=== PATIENT | male | born 1950 | race Caucasian/White ===

== ENCOUNTER 2018-11-25 05:03 | Inpatient (IN) ==
[2018-11-19 14:44] LABS: HEMATOCRIT 50.8 % (42.0-52.0); HEMOGLOBIN 17.1 g/dL (14.0-18.0); MCH 30.2 PG (27-31); MCHC 33.7 g/dL (33-37); MCV 89.8 FL (81-99); MPV 11.3 FL (7.4-10.4); RBC 5.66 XMIL (4.7-6.1); RDW 13.6 % (11.5-14.5); WBC 8.83 X1000 (4.8-10.8)
[2018-11-19 15:03] LABS: CALCIUM 8.9 mg/dL (8.8-10.2); CREATININE 1.3 mg/dL (0.7-1.2); POTASSIUM 4.6 mmol/L (3.5-5.1)
[2018-11-25] MEDS ORDERED: KEFZOL 1 GM/D5W 2 GM/100 ML IVPB ONE (06:00)
[2018-11-25] MEDS ORDERED: REGLAN ONE (06:00)
[2018-11-25] MEDS ORDERED: PEPCID ONE (06:00)
[2018-11-25] MEDS ORDERED: LR 1,000 ML ONE ×2 (06:00→06:43)
[2018-11-25] MEDS ORDERED: VERSED ONE (06:12)
[2018-11-25] MEDS ORDERED: FENTANYL ONE ×2 (06:12→09:56)
[2018-11-25] MEDS ORDERED: XYLOCAINE-MPF 2% ONE (06:12)
[2018-11-25] MEDS ORDERED: DIPRIVAN 1% ONE (06:13)
[2018-11-25] MEDS ORDERED: OFIRMEV 1000 MG/ISOTONIC SOLN 1,000 MG/100 ML BOTTLE ONE (06:13)
[2018-11-25] MEDS ORDERED: QUELICIN (DOSE) ONE (06:13)
[2018-11-25] MEDS ORDERED: NORCURON ONE (06:13)
[2018-11-25] MEDS ORDERED: SODIUM CHLORIDE 0.9% 10 ML ONE (06:13)
[2018-11-25] MEDS ORDERED: SENSORCAINE 0.25%/EPI 1:200,000 ONE (06:43)
[2018-11-25] MEDS ORDERED: EPHEDRINE ONE (07:08)
[2018-11-25] MEDS ORDERED: ZOFRAN ONE (07:15)
[2018-11-25] MEDS ORDERED: DECADRON ONE (07:15)
[2018-11-25] MEDS ORDERED: NEOSTIGMINE ONE (08:16)
[2018-11-25] MEDS ORDERED: ROBINUL ONE (08:16)
[2018-11-25 09:54] LABS: URINE SOURCE CATH
[2018-11-25 10:00] LABS: BILIRUBIN URINE NEGATIVE (NEGATIVE); BLOOD URINE NEGATIVE (NEGATIVE); COLOR YELLOW; GLUCOSE URINE NEGATIVE (NEGATIVE); KETONE URINE 10 mg/dL (NEGATIVE); LEUKOCYTES URINE NEGATIVE (NEGATIVE); NITRITE URINE NEGATIVE (NEGATIVE); PROTEIN URINE NEGATIVE (NEGATIVE); SP GRAVITY URINE 1.014; TURBIDITY URINE CLEAR (CLEAR); UROBILINOGEN URINE NORMAL (NORMAL)
[2018-11-25 10:01] LABS: UR EPITHELIAL CELLS <10 /HPF (<10); URINE BACTERIA NEGATIVE /HPF; URINE RBC <10 /HPF (<10); URINE WBC <10 /HPF (<10)
[2018-11-25] MEDS ORDERED: NS 1,000 ML ONE (11:04)
[2018-11-25] MEDS ORDERED: LABETALOL IV PRN (11:30)
[2018-11-25] MEDS ORDERED: PHENERGAN IV PRN (11:30)
[2018-11-25] MEDS ORDERED: SODIUM CHLORIDE 0.9% INJ PRN (11:30)
[2018-11-25] MEDS: OXY IR PO PRN ×3 (11:38→21:39)
[2018-11-25] MEDS: MORPHINE IV PRN ×3 (12:36→17:52)
[2018-11-25] MEDS: NS 1,000 ML IV SCH ×2 (12:37→22:06)
[2018-11-25] MEDS ORDERED: OFIRMEV 1000 MG/ISOTONIC SOLN 1,000 MG/100 ML BOTTLE IV PRN (13:00)
[2018-11-25] MEDS: KEFZOL 2 GM/D5W 2 GM/50 ML IVPB IV SCH ×2 (14:46→22:12)
[2018-11-25] MEDS ORDERED: HALL'S COUGH LOZENGE MT PRN (17:57)
[2018-11-25] MEDS ORDERED: MAG-OX PO SCH (21:00)
[2018-11-25] MEDS ORDERED: VICON-C PO SCH (21:00)
[2018-11-25] MEDS ORDERED: AVODART PO SCH (21:00)
[2018-11-25] MEDS ORDERED: COENZYME Q10 PO SCH (21:00)
[2018-11-25] MEDS ORDERED: CRESTOR PO SCH (21:00)
[2018-11-25] MEDS ORDERED: LEXAPRO PO SCH (21:00)
[2018-11-25] MEDS: PERIDEX MT SCH (21:39)
[2018-11-25] MEDS: PEPCID PO SCH (21:39)
[2018-11-25] MEDS: COLACE PO SCH (21:39)
[2018-11-25] MEDS: FLOMAX PO SCH (21:40)
[2018-11-26] MEDS: OXY IR PO PRN ×2 (01:49→06:55)
[2018-11-26] MEDS ORDERED: THYROID PO SCH (07:00)
[2018-11-26 07:04] LABS: HEMATOCRIT 42.2 % (42.0-52.0); MCH 30.8 PG (27-31); MCHC 33.2 g/dL (33-37); MCV 92.7 FL (81-99); MPV 11.6 FL (7.4-10.4); RBC 4.55 XMIL (4.7-6.1); RDW 14.2 % (11.5-14.5); WBC 9.75 X1000 (4.8-10.8)
[2018-11-26 07:21] LABS: CALCIUM 7.4 mg/dL (8.8-10.2); CREATININE 2.1 mg/dL (0.7-1.2); POTASSIUM 4.3 mmol/L (3.5-5.1)
[2018-11-26 07:33] VITALS: BP 103/61
[2018-11-26] MEDS: FLOMAX PO SCH (08:44)
[2018-11-26] MEDS: PERIDEX MT SCH (08:44)
[2018-11-26] MEDS: COLACE PO SCH (08:45)
[2018-11-26] MEDS: PEPCID PO SCH (08:45)
[2018-11-26] MEDS ORDERED: FAMVIR PO SCH (09:00)
[2018-11-26] MEDS ORDERED: VITAMIN B-12 PO SCH (09:00)
[2018-11-26] MEDS ORDERED: SINGULAIR PO SCH (09:00)
[2018-11-26] MEDS ORDERED: VITAMIN D PO SCH (09:00)
[2018-11-26] MEDS ORDERED: DEPO-TESTOSTERONE INJ SCH (10:00)
== END 2018-11-26 09:15 | disposition home or self-care (01) ==
LOC: SURHOLD 05:03 → 4N 08:31
PROVIDERS: ADMIT Urology; ATTEND Urology

== ENCOUNTER 2018-11-26 20:00 | Inpatient (IN) ==
[2018-11-26] MEDS ORDERED: DILAUDID IV ONE ×2 (21:06→23:42)
[2018-11-26] MEDS ORDERED: ZOFRAN IV ONE (21:06)
[2018-11-26] MEDS ORDERED: NS 1,000 ML IV SCH (21:15)
[2018-11-26 21:35] LABS: BASO# 0.02 X1000 (0.0-0.2); BASO% 0.2 % (0.0-0.8); EOS# 0.08 X1000 (0.0-0.7); EOS% 0.8 % (0.0-10.0); HEMATOCRIT 46.1 % (42.0-52.0); HEMOGLOBIN 15.2 g/dL (14.0-18.0); IMM GRAN# 0.02 X1000 (0.0-0.04); IMM GRAN% 0.2 % (0.0-0.5); LYMPH# 1.64 X1000 (1.2-3.4); LYMPH% 16.4 % (20.5-51.1); MCH 30.2 PG (27-31); MCV 91.7 FL (81-99); MPV 11.4 FL (7.4-10.4); NEUT# 7.37 X1000 (1.4-6.5); NEUT% 73.4 % (42.2-75.2); PLT 160 X1000 (130-400); RBC 5.03 XMIL (4.7-6.1); RDW 14.5 % (11.5-14.5); WBC 10.03 X1000 (4.8-10.8)
[2018-11-26 21:53] LABS: ALB/GLOB RATIO 1.3; ALBUMIN 3.9 g/dL (3.5-5.0); CALCIUM 7.9 mg/dL (8.8-10.2); CREATININE 2.2 mg/dL (0.7-1.2); POTASSIUM 4.1 mmol/L (3.5-5.1); TOTAL BILIRUBIN 0.54 mg/dL (0.20-1.00); TOTAL PROTEIN 6.9 g/dL (6.3-8.3)
[2018-11-26 22:14] LABS: URINE SOURCE CLEAN CATCH
[2018-11-26 22:53] LABS: BILIRUBIN URINE NEGATIVE (NEGATIVE); BLOOD URINE MODERATE (NEGATIVE); COLOR YELLOW; GLUCOSE URINE NEGATIVE (NEGATIVE); KETONE URINE 20 mg/dL (NEGATIVE); LEUKOCYTES URINE NEGATIVE (NEGATIVE); NITRITE URINE NEGATIVE (NEGATIVE); PROTEIN URINE 100 mg/dL (NEGATIVE); SP GRAVITY URINE 1.026; TURBIDITY URINE CLEAR (CLEAR); UROBILINOGEN URINE NORMAL (NORMAL)
[2018-11-26 22:55] LABS: UR EPITHELIAL CELLS <10 /HPF (<10); URINE BACTERIA NEGATIVE /HPF; URINE RBC TNTC /HPF (<10); URINE WBC <10 /HPF (<10)
--- NOTE | 2018-11-26 23:42 | PROVIDER DOCUMENTATION ---
This chart was entered by Priscila Castellano Scribe, acting as scribe for Spencer Rodriguez MD. HPI-General Adult - General Chief Complaint: Post Op Complaint Stated Complaint: KIDNEY REMOVED YESTERDAY/PAIN Time Seen by Provider: 11/26/18 20:44 Source: patient Allergies/Adverse Reactions: Patient Allergies Allergy/AdvReac Type Severity Reaction Status Date / Time No Known Allergies Allergy Verified 11/25/18 06:01 Home Medications: Home Medication List Medication Instructions Recorded Confirmed Last Taken Type Cholecalciferol (Vitamin D3) 5,000 unit PO DAILY 11/19/18 11/19/18 11/24/18 09:00 History [Vitamin D3] Cyanocobalamin S.l. [Vitamin B-12] 5,000 mcg SUBLINGUAL DAILY 11/19/18 11/19/18 11/24/18 09:00 History Dutasteride [Avodart] 0.5 mg PO QHS 11/19/18 11/25/18 11/24/18 21:00 History Escitalopram Oxalate [Lexapro] 10 mg PO HS 11/19/18 11/25/18 11/24/18 21:00 History Famciclovir 250 mg PO DAILY 11/19/18 11/19/18 11/24/18 09:00 History Magnesium 200 mg PO HS 11/19/18 11/25/18 11/24/18 21:00 History Montelukast Sodium [Singulair] 10 mg PO DAILY 11/19/18 11/25/18 11/24/18 21:00 History ROSUVAstatin [Crestor] 20 mg PO HS 11/19/18 11/25/18 11/24/18 21:00 History Tamsulosin [Flomax] 0.4 mg PO BID 11/19/18 11/19/18 11/24/18 21:00 History Testosterone Cypionate 0.75 ml INJ Q7D 11/19/18 11/25/18 11/19/18 History Thyroid,Pork [[place] Thyroid] 60 mg PO DAILY 11/19/18 11/19/18 11/24/18 09:00 History Ubidecarenone [Co Q10] 200 mg PO HS 11/19/18 11/25/18 11/24/18 21:00 History Vitamin B Complex 1 dose PO HS 11/19/18 11/25/18 11/24/18 21:00 History Hydrocodone/Acetaminophen [[place] 1 ea PO Q4H PRN #12 tab 11/25/18 Unknown Rx 7.5-325 Tablet] - History of Present Illness -Gen Adult Nature of Presenting Problems: Pt is a 68 yom who presents to the ED w a c/o of post surgery generalized pain. Pt had kidney surgery yesterday. Pt states that his current medication(percocet) has not fully relieved the pain. Pt denies nausea, vomiting, and fever. Pt has not had a bowel movement since the surgery. One episode of diarrhea pre surgery. Pt reports loss of appetite. Pt reports taking a 1/2 of dulcolax. Location of Pain/Injury: reports: abdomen, generalized Pain Radiation: reports: no radiation Severity: reports: severe Onset/Duration: reports: this morning Timing: reports: still present, getting worse Context/Activities at Onset: reports: recent physical stress (Surgery for kidney removal 1 day ago) Modifying Factors: improves with: other medication (no relief with percocet) Associated Symptoms: denies: fever/chills, nausea, vomiting Similar Symptoms Previously?: No Recently seen or treated by another doctor?: Yes Review of Systems - Adult - REVIEW OF SYSTEMS - ADULT Constitutional: denies: chills, fever Eyes: reports: no symptoms reported Ears, Nose, Mouth & Throat: reports: no symptoms reported Cardiovascular: reports: no symptoms reported Respiratory: reports: no symptoms reported Gastrointestinal: reports: see HPI, abdominal pain (generalized), poor appetite. denies: nausea, vomiting Genitourinary: reports: no symptoms reported Musculoskeletal: denies: back pain Integumentary: reports: no symptoms reported Neurological: reports: no symptoms reported Psychiatric: reports: no symptoms reported Endocrine: reports: no symptoms reported Hematologic/Lymphatic: reports: no symptoms reported Allergic/Immunologic: reports: no symptoms reported All Other Systems: Reviewed and Negative Past History - Adult - PAST MEDICAL HISTORY-ADULT Review of Records: reports: Nursing Assessment Review, Medications Reviewed, Social history reviewed & non-contributory. Major Childhood Illnesses: reports: denies history Cardiovascular: reports: HTN Respiratory: reports: denies history Gastrointestinal: reports: denies history Obstetrical/Gynecological: reports: denies history Genitourinary: reports: kidney disease (renal disease) Musculoskeletal: reports: denies history Neurological: reports: denies history Endocrine/Immune: reports: thyroid disorder (hypothyroid) Other Conditions: reports: denies history - IMMUNIZATION STATUS Childhood Immunizations: See Nurse Assessment Flu Vaccine: See Nurse Assessment - FAMILY HISTORY Family History: reviewed, not pertinent - SOCIAL HISTORY Smoking: quit greater than 1 year Substance Use: denies Alcohol Use Frequency: every day (2-3 beers daily) Number of drinks per typical drinking period:: 2 drinks Living Situation: family Physical Exam-General - CONSTITUTIONAL General Appearance: alert, mild distress. negative: lethargic - HEAD, EARS, NOSE, MOUTH & THROAT HENMT: normocephalic/atraumatic, moist mucous membranes, normal ENT inspection, pharynx normal - RESPIRATORY Respiratory: crackles (by basilar), other (tender across chest wall). negative: chest non-tender, lungs clear, normal breath sounds, wheezing - CARDIOVASCULAR Cardiovascular: normal peripheral pulses, regular rate, rhythm - GASTROINTESTINAL (ABDOMEN) Abdominal Exam: abnormal bowel sounds (tinkling) - MUSCULOSKELETAL Back Exam: normal inspection Extremity: normal range of motion, non-tender, normal inspection - SKIN Integumentary: normal color, normal turgor, warm/dry. negative: ecchymosis, erythema - PSYCHIATRIC Psych/Mental Status: normal mood/affect, normal thought content, normal thought process, oriented x 3 Progress - PLAN OF CARE/RESULTS Progress/Plan/Lab Results: Vital Signs - 8 hr 11/26/18 20:10 Temperature 99.3 F Pulse Rate 87 Respiratory Rate 17 Blood Pressure 127/66 O2 Sat by Pulse Oximetry 90 L Result Diagrams: 11/26/18 21:24 11/26/18 21:24 - CT/MRI 1 CT Study: Abdomen, Pelvis Impression: Abnormal (Colonic ileus) - CONSULTS/PCP/HOSPITALIST Notification #1 *Consult/PCP/Hospitalist*: Time Discussed: 23:32 Reason/Comments: discussed plan of care for patient admit, contact hospitalist for admit #2 Consult: Dr. Thor Giang Discussed: 23:34 Reason/Comments: Discussed plan of care for patient care admit, admit accepted Departure - Departure Date of Disposition Decision: 11/26/18 Time of Disposition Decision: 23:40 DIAGNOSIS: Paralytic ileus, S/p nephrectomy Disposition: ADMITTED INPATIENT 09 Certified Medical Emergency: Emergent Condition: Good Referrals and Follow-Ups: Lizzie Cleary MD [Primary Care Provider] - - Critical Care Note This patient required my direct & personal management of CC.: No Attestation - Physician/ IVÁN Attestation Patient care was provided by Advanced Practice Provider:: No The physician spent face to face time with patient:: Yes Advanced Practice Provider documentation review:: Supervising physician onsite and consulted in the evaluation and care of this patient. The physician did have a face to face encounter with the patient. This chart was documented by the indicated scribe, (Priscila Castellano Scribe) and accurately reflects the services I performed and decisions made by me, Spencer Rodriguez MD, as attested by the provider's signature.
[2018-11-27] MEDS ORDERED: ZOFRAN IV PRN (03:06)
--- NOTE | 2018-11-27 04:48 | HISTORY AND PHYSICAL ---
PRIMARY CARE PHYSICIAN: Dr. Cleary. CHIEF COMPLAINT: Abdominal pain. HISTORY OF PRESENTING ILLNESS: A 68-year-old male with a history of BPH, hyperlipidemia, hypothyroidism, urinary retention who underwent radical left nephrectomy yesterday. Presents back to emergency department due to due to patient having severe abdominal pain. The patient states that he went home after the surgery and he developed worsening abdominal pain and was nauseated. The patient was evaluated in the emergency department. He had imaging done which did show a colonic ileus. Due to his presenting symptoms, he will require admission for further management. At the time of my examination, he denied any headache, fever, chills, chest pain, shortness of breath or any weight changes, but complained of abdominal pain. PAST MEDICAL HISTORY: Include BPH, hyperlipidemia, hypothyroidism, urinary retention. PAST SURGICAL HISTORY: Left ankle surgery status post recent left nephrectomy, hernia repair, appendectomy, right eye surgery. ALLERGIES: No known drug allergies. CURRENT MEDICATIONS: Vitamin B12 5000 mcg sublingual daily, Avodart 0.5 mg p.o. at bedtime, Lexapro 10 mg p.o. at bedtime, famciclovir 250 mg p.o. daily, [place] 7.5 mg p.o. q.4 hours, rosuvastatin 20 mg p.o. at bedtime, tamsulosin 0.4 mg p.o. b.i.d., [place] Thyroid 60 mg p.o. daily. SOCIAL HISTORY: He is a former smoker. Admits to alcohol use regularly. Denies any illicit drug use. FAMILY HISTORY: No history of coronary artery disease. REVIEW OF SYSTEMS: Fourteen point review of system as listed in HPI. Other systems negative. PHYSICAL EXAMINATION: GENERAL: Cooperative, friendly male. He is resting comfortably now. VITAL SIGNS: Temperature 99.3 degrees, pulse 87, respirations 17, blood pressure 127/66. HEENT: Atraumatic, normocephalic. Extraocular movements intact. PERRLA. NECK: No masses. CHEST: Clear to auscultation. CARDIOVASCULAR: Regular rate and rhythm. ABDOMEN: Soft. Diffuse tenderness. EXTREMITIES: No edema. NEUROLOGIC: He is awake, alert, oriented x3. GENITOURINARY: No bladder distention. SKIN: Warm. LABORATORIES AND STUDIES: WBCs 10.03, hemoglobin 15.2, hematocrit 46.1, platelets 160,000. Sodium 139, potassium 4.1, chloride 104, CO2 of 22, BUN is 18, creatinine is 2.2. Glucose 130. ASSESSMENT: A 68-year-old male with a history of BPH, hyperlipidemia, hypothyroidism, and urinary retention who recently underwent a radical left nephrectomy, presented back to emergency department due to patient having severe abdominal pain. He was evaluated the ED. He had imaging done which did show an ileus and his case was discussed with his urologist, who recommended the patient be admitted for further management. 1. Status post recent nephrectomy. 2. Postoperative ileus. 3. Hyperlipidemia. 4. Hypothyroidism. PLAN: 1. We will admit patient to medical floor with telemetry. 2. We will keep patient NPO. Continue with supportive treatment with IV fluids, antiemetics, and adequate pain control. 3. We will consult his urologist. 4. We will hold home medications for now. 5. Put patient on DVT prophylaxis, sequential compression devises. 6. We will continue to follow and reassess. Make further recommendation based on patient's clinical course. cc: Stephan Mcrae MD
[2018-11-27] MEDS: DILAUDID IV PRN ×4 (05:40→20:54)
--- NOTE | 2018-11-27 07:46 | Diag Imaging Result Doc PS360 ---
CT ABDOMEN/PELVIS W/O CONTRAST - 11/26/2018 INDICATION: abd pain, post op, tinkling BS COMPARISON: 11/04/2018 FINDINGS: There is significant multifocal atelectasis in the lower lobes bilaterally. Heart size is normal with no pericardial effusion. There has been left nephrectomy. There is a small amount of ill-defined fluid in the nephrectomy bed. Stable right renal cyst. [place] catheter in the urinary bladder. Stable relatively large right inguinal fat-containing hernia. Trace soft tissue gas from the recent operation. The colon is mildly hyperinflated. Normal amount of stool. No bowel inflammation. Normal appendix. Prostate and rectum are normal. There are moderate degenerative changes of the spine. No acute or suspicious bony lesion. IMPRESSION: 1. Some gaseous distention of the colon suggesting colonic ileus. No obstruction. 2. No complication at the left nephrectomy site. 3. Multifocal atelectasis in the lower lobes bilaterally. This exam was performed using automated exposure control, adjustment of mA or kV according to patient size, and/or use of iterative reconstruction technique Electronically signed by Alexis Heller 11/27/2018 7:43 AM
[2018-11-27] MEDS: NS 1,000 ML IV SCH ×3 (11:16→20:57)
[2018-11-27] MEDS ORDERED: NORCO-7.5 PO PRN (15:07)
--- NOTE | 2018-11-27 17:20 | PROGRESS NOTE ---
DATE: 11/27/2018 INTERVAL HISTORY: No acute events overnight. He was admitted for a colonic ileus. He has been experiencing abdominal pain. He was able to walk in the hallway. I evaluated him at the bedside. His partner is at bedside. Currently Mr. Jiménez denies any nausea, vomiting, chest pain, or shortness of breath. He does have abdominal distention, abdominal tenderness. He just had a bowel movement. VITAL SIGNS: Temperature of 98.7 degrees, pulse 94, respiratory rate 16, blood pressure 140/80, saturating 96% on room air. PHYSICAL EXAMINATION: General: Does not appear in any acute distress. HEENT: Oral cavity is moist. Lungs: Air entry bilaterally equal. No wheeze or rhonchi. Inspiratory crackles bilateral infrascapular region. Cardiovascular: S1, S2 normal. Not tachycardic. No murmur, rub, or gallop. Abdomen: Distended. Midline and left lower quadrant scar of laparoscopy. Generalized tenderness, more pronounced around incision. Hypoactive bowel sounds. Tympanic to percussion. Extremities: No lower extremity edema. Neurologic: He is alert and oriented x3. LABS: No leukocytosis. He does have a creatinine of 2.2 and BUN of 18. His urinalysis had more red blood. MICROBIOLOGY: No data. IMAGING: Abdomen and pelvis CT yesterday night had gaseous distention of the colon. ASSESSMENT AND PLAN: 1. Colonic ileus after recent left nephrectomy due to suspected tumor on November 25. He has had a bowel movement. I will start him on a clear liquid diet. I will continue pain regimen with intravenous hydromorphone and oral hydrocodone. I encouraged him to be ambulatory. I will also start him on incentive spirometry. 2. Elevated creatinine. This is expected after nephrectomy. I will keep him on intravenous fluids. Follow up with his electrolytes tomorrow. I encouraged him to avoid any nephrotoxic medications. 3. Others. Continue home dutasteride and tamsulosin for benign prostatic hypertrophy; citalopram; magnesium and montelukast; rosuvastatin for hyperlipidemia; thyroid supplement for hypothyroidism. 4. Disposition. I will monitor patient inside the hospital. I will discontinue telemetry. Plan of care discussed with the patient and his partner at bedside. All of their questions have been satisfactorily answered. cc: Gera Rodriguez MD
[2018-11-27] MEDS: AVODART PO SCH (20:55)
[2018-11-27] MEDS: CRESTOR PO SCH (20:55)
[2018-11-27] MEDS: FLOMAX PO SCH (20:55)
[2018-11-27] MEDS: VICON-C PO SCH (20:56)
[2018-11-27] MEDS: LEXAPRO PO SCH (20:57)
[2018-11-27] MEDS ORDERED: MAG-OX PO SCH (21:00)
[2018-11-27] MEDS: COENZYME Q10 PO SCH (21:24)
[2018-11-28] MEDS: DILAUDID IV PRN ×2 (01:05→05:12)
[2018-11-28] MEDS: NS 1,000 ML IV SCH (06:55)
[2018-11-28 07:08] LABS: BASO# 0.02 X1000 (0.0-0.2); BASO% 0.2 % (0.0-0.8); EOS# 0.13 X1000 (0.0-0.7); EOS% 1.3 % (0.0-10.0); IMM GRAN# 0.03 X1000 (0.0-0.04); IMM GRAN% 0.3 % (0.0-0.5); LYMPH# 2.29 X1000 (1.2-3.4); MCH 30.3 PG (27-31); MCHC 32.7 g/dL (33-37); MCV 92.8 FL (81-99); MONO# 1.02 X1000 (0.11-0.59); MONO% 10.2 % (1.7-9.3); MPV 11.8 FL (7.4-10.4); NEUT# 6.48 X1000 (1.4-6.5); PLT 170 X1000 (130-400); RBC 5.28 XMIL (4.7-6.1); RDW 14.2 % (11.5-14.5); WBC 9.97 X1000 (4.8-10.8)
[2018-11-28 07:32] LABS: CALCIUM 7.9 mg/dL (8.8-10.2); CREATININE 1.9 mg/dL (0.7-1.2); POTASSIUM 3.8 mmol/L (3.5-5.1)
[2018-11-28] MEDS: VITAMIN D PO SCH (08:58)
[2018-11-28] MEDS: SINGULAIR PO SCH (08:58)
[2018-11-28] MEDS: FLOMAX PO SCH ×2 (08:58→21:05)
[2018-11-28] MEDS: THYROID PO SCH (08:58)
[2018-11-28] MEDS: VITAMIN B-12 SL SCH (08:58)
[2018-11-28] MEDS: NORCO-7.5 PO PRN ×4 (09:10→22:24)
[2018-11-28] MEDS: PEPCID PO SCH ×2 (11:48→21:05)
--- NOTE | 2018-11-28 17:49 | PROGRESS NOTE ---
DATE: 11/28/2018 INTERVAL HISTORY: No acute events overnight. He has been walking. He has not used IV pain medications since morning time. He has had diarrhea. He has not been eating or drinking well. I discussed with him about improving kidney function. I also discussed with him about getting stool studies. CURRENT VITALS: Temperature 98.7 degrees, pulse 87, respiratory rate 18, blood pressure 140/90, saturating 97% on room air. PHYSICAL EXAMINATION: General: Does not appear in acute distress. Oral cavity is moist. Air entry bilaterally equal. No wheeze or rhonchi. Mild crackles in inframammary region. S1, S2 normal. No murmur, rub, or gallop. Abdomen: Distended, soft. Generalized tenderness. Laparoscopy scar is healing well. Hypoactive bowel sounds. No lower extremity edema. He is alert and oriented x3. LABORATORY: Suggestive of no leukocytosis, normal hemoglobin, normal platelet count. He does have improvement in creatinine. ASSESSMENT AND PLAN: 1. Colonic ileus after recent left nephrectomy due to suspected tumor, on November 25. Now improving. Continue pain management with IV hydromorphone for severe pain and oral opioid for less than severe pain. Advance diet to full liquid diet. Continue ambulation and use of incentive spirometry. 2. Diarrhea. The patient has been experiencing diarrhea since one week prior to the surgery. He denies recent antibiotic use. I will stop his magnesium oxide. I will follow up with stool Clostridium difficile analysis and culture, and also TSH since thyrotoxicosis could be a contributing factor. 3. Elevated creatinine after nephrectomy. His creatinine is better. He should have outpatient Nephrology followup. 4. Others: Continue dutasteride and tamsulosin for benign prostatic hypertrophy; citalopram, montelukast, rosuvastatin for hyperlipidemia, thyroid supplement for hypothyroidism. 5. Disposition. The patient still feels his abdomen is distended and would like to be monitored inside the hospital, which I would for another 24 hours at least. Plan of care discussed with the patient and his family at bedside. Their questions have been answered. cc: Gera Rodriguez MD
[2018-11-28] MEDS: TUMS PO SCH ×2 (18:37→21:04)
[2018-11-28] MEDS: AVODART PO SCH (21:04)
[2018-11-28] MEDS: COENZYME Q10 PO SCH (21:05)
[2018-11-28] MEDS: CRESTOR PO SCH (21:05)
[2018-11-28] MEDS: LEXAPRO PO SCH (21:05)
[2018-11-28] MEDS: VICON-C PO SCH (21:05)
[2018-11-29] MEDS: NORCO-7.5 PO PRN ×3 (02:25→10:24)
[2018-11-29 07:08] LABS: BASO# 0.03 X1000 (0.0-0.2); BASO% 0.3 % (0.0-0.8); EOS# 0.24 X1000 (0.0-0.7); EOS% 2.6 % (0.0-10.0); HEMOGLOBIN 15.4 g/dL (14.0-18.0); LYMPH# 1.86 X1000 (1.2-3.4); MCH 30.2 PG (27-31); MCHC 32.8 g/dL (33-37); MCV 92.2 FL (81-99); MONO# 0.99 X1000 (0.11-0.59); MONO% 10.7 % (1.7-9.3); MPV 11.4 FL (7.4-10.4); NEUT# 6.16 X1000 (1.4-6.5); NEUT% 66.4 % (42.2-75.2); PLT 177 X1000 (130-400); RDW 13.9 % (11.5-14.5); WBC 9.28 X1000 (4.8-10.8)
[2018-11-29] MEDS: FLOMAX PO SCH (08:27)
[2018-11-29] MEDS: PEPCID PO SCH (08:27)
[2018-11-29] MEDS: TUMS PO SCH ×2 (08:27→12:56)
[2018-11-29] MEDS: VITAMIN D PO SCH (08:27)
[2018-11-29] MEDS: VITAMIN B-12 SL SCH (08:27)
[2018-11-29] MEDS: SINGULAIR PO SCH (08:27)
[2018-11-29] MEDS: THYROID PO SCH (08:27)
[2018-11-29 12:52] VITALS: BP 132/82
--- NOTE | 2018-11-29 19:33 | DISCHARGE SUMMARY ---
ADMISSION DATE: 11/27/2018 DISCHARGE DATE: 11/29/2018 DISCHARGE DISPOSITION: Home with family. DISCHARGE CONDITION: Hemodynamically stable. He does not have any nausea or vomiting. He has had 2 bowel movements. His abdominal pain is well controlled on oral medications. DISCHARGE DIAGNOSES: 1. Colonic ileus after recent robotic laparoscopic surgery. 2. Nonbacterial diarrhea. 3. Elevated creatinine after nephrectomy. OTHER DIAGNOSES: 1. History of benign prostatic hypertrophy. 2. History of left renal mass suspicious of malignancy. 3. Hyperlipidemia. 4. Hypothyroidism. 5. Anxiety. CONSULTATIONS DURING HOSPITALIZATION: Dr. Baumann, Urology. DISCHARGE MEDICATIONS: Dutasteride 0.5 mg at nighttime, [place] Thyroid 60 mg daily, COQ-10 200 mg at nighttime, rosuvastatin 20 mg at nighttime. Tamsulosin 0.4 mg b.i.d., escitalopram oxalate 10 mg at nighttime, montelukast 10 mg daily, testosterone 0.75 mL injection every 7 days, vitamin B complex 1 dose at nighttime, vitamin B12 5000 mcg sublingual daily, vitamin D3 5000 units daily, [place] 7.5 1 tablet every 4 hours as needed for abdominal pain. VITAL SIGNS: At time of discharge temperature 97.9 degrees, pulse 74, respiratory rate 18, blood pressure 132/82 saturating 95% room air. PHYSICAL EXAMINATION: General: Does not appear in acute distress, oral cavity is moist. Lungs: Air entry bilaterally equal. No wheeze, rhonchi, or crackles. Cardiovascular: S1, S2 normal. No murmur, rub, or gallop. Abdomen: Soft midline garima. Generalized tenderness, distention. Active bowel sounds. Tympanic to percussion. No lower extremity edema. SIGNIFICANT LABS: During hospital admission and discharge, WBC 9.2, hemoglobin 15.4, platelet 177,000. On admission, his BUN was 18, creatinine was 2.2. Later on, it became 15 and 1.9. His TSH was 1.72. Urinalysis has moderate blood with RBCs. Stool Clostridium difficile analysis and culture did not have any growth. SIGNIFICANT IMAGING: Abdomen and pelvis CT on presentation had some gaseous distention of the colon suggestive of colonic ileus without any obstruction. There was no complication of the left nephrectomy side. There were multifocal atelectasis in the lower lobes bilaterally. Next assessment and plan. HOSPITAL COURSE SUMMARY: Mr. Jiménez he is a 68-year-old man who underwent laparoscopic robotic-assisted left radical nephrectomy on 11/25/2018 and then was discharged to home. However, he presented on 11/26/2018 nighttime with chief complaints of generalized abdominal pain post surgery. The pain medication he was taking was not able to relieve his pain. He did not have any nausea, vomiting, fever, and he had not had any bowel movement since the surgery, so he decided to come to the hospital. In the hospital, he was hemodynamically stable. The CT scan abdominal pelvis had colonic ileus, so he was admitted for further management of colonic ileus and was started on intravenous pain medications. Later on his intravenous pain medications were changed to oral and he was able to tolerate softer diet, though initially he was kept NPO. On softer diet, he did not have any nausea, vomiting. He continues to have liquidy bowel movements. It was decided to discharge him on oral pain medications. While inside the hospital, he also complained of diarrhea, which was ongoing since 2 weeks so stool Clostridium difficile and stool cultures were performed which were unremarkable so he was advised that it was non-bacterial diarrhea. His TSH was also within normal range. He was advised to have a discussion with his regular physician and further stool studies if he continue to have diarrhea. More than 30 minutes were spent discharging the patient. Plan of care discussed with him and his . All of their questions were answered. cc: Gera Rodriguez MD
== END 2018-11-29 13:50 | disposition home or self-care (01) | DRG 389 ==
LOC: ED 20:00 → SUATTDRO 11-27 02:02 → 4N 11-27 02:02
PROVIDERS: ATTEND Internal Medicine